=== PATIENT | male | born 1955 | race Caucasian/White ===

== ENCOUNTER 2020-09-30 09:05 | Inpatient (IN) | payer SELFPAY ==
[~2020-09-30] VITALS: Ht 172.7 cm; Wt 62.3 kg
[~2020-09-30 09:05] MED LIST: NKHM
[2020-09-30 09:07] VITALS: BP 120/70
[2020-09-30 09:36] VITALS: BP 122/64
[2020-09-30 09:42] LABS: BASO % 0.2 % (0.0-1.0); HEMATOCRIT 29.3 % (42.0-52.0); LYMPH # 1.6 10*3/uL (1.3-4.4); LYMPH % 16.8 % (27.0-41.0); MEAN CELL VOLUME 87.2 fl (80.0-94.0); MEAN CORPUSCULAR HGB 28.3 pg (27.0-31.0); MEAN CORPUSCULAR HGB CONC 32.4 g/dl (33.0-37.0); MEAN PLATELET VOLUME 10.8 fl (9.6-12.3); MONO # 0.4 10*3/uL (0.1-1.0); MONO % 4.5 % (3.0-9.0); NEUT # 7.2 10*3/uL (2.3-7.9); NEUT % 77.7 % (47.0-73.0); PLATELET COUNT AUTOMATED 50 10*3/uL (130-400); RED BLOOD COUNT 3.36 10*6/uL (4.50-5.90); WHITE BLOOD COUNT 9.3 10*3/uL (4.8-10.8)
[2020-09-30 09:54] LABS: INTERNATIONAL NORM RATIO 1.1 (2.0-3.5)
[2020-09-30 09:58] LABS: ALBUMIN 2.8 gm/dl (3.1-4.5); ALKALINE PHOSPHATASE 104 U/L (45-117); BUN 16 mg/dl (7-24); CHLORIDE 98 mmol/L (98-107); CREATININE 0.94 mg/dL (0.70-1.30); POTASSIUM 4.2 mmol/L (3.5-5.1); SGOT/AST 28 IU/L (3-35); SGPT/ALT 20 U/L (12-78); SODIUM 132 mmol/L (136-145); TOTAL PROTEIN 8.7 gm/dL (6.4-8.2)
[2020-09-30 10:01] LABS: ETHYL ALCOHOL < 3.0 mg/dl (<3); TROPONIN I 0.824 ng/ml (<0.045)
[2020-09-30 10:05] VITALS: BP 132/65
[2020-09-30 16:00] VITALS: BP 112/67
[2020-09-30 20:00] VITALS: BP 119/64
[2020-10-01] VITALS: BP 121/61
[2020-10-01 06:20] LABS: HEMATOCRIT 25.9 % (42.0-52.0); MEAN CELL VOLUME 88.7 fl (80.0-94.0); MEAN CORPUSCULAR HGB 28.1 pg (27.0-31.0); MEAN CORPUSCULAR HGB CONC 31.7 g/dl (33.0-37.0); MEAN PLATELET VOLUME 10.9 fl (9.6-12.3); PLATELET COUNT AUTOMATED 55 10*3/uL (130-400); RED BLOOD COUNT 2.92 10*6/uL (4.50-5.90); RED CELL DISTRI WIDTH 16.1 % (0-14.5); WHITE BLOOD COUNT 8.2 10*3/uL (4.8-10.8)
[2020-10-01 06:31] LABS: INTERNATIONAL NORM RATIO 1.1 (2.0-3.5)
[2020-10-01 06:48] LABS: ALBUMIN 2.2 gm/dl (3.1-4.5); ALKALINE PHOSPHATASE 77 U/L (45-117); BUN 10 mg/dl (7-24); CHLORIDE 99 mmol/L (98-107); CHOLESTEROL 93 mg/dL (<200); CREATININE 0.81 mg/dL (0.70-1.30); HDL CHOLESTEROL 19 mg/dl (40-60); LDH 229 U/L (87-241); LDL CHOLESTEROL 54 mg/dL (9-159); POTASSIUM 3.7 mmol/L (3.5-5.1); SGOT/AST 23 IU/L (3-35); SGPT/ALT 17 U/L (12-78); SODIUM 131 mmol/L (136-145); TOTAL PROTEIN 7.2 gm/dL (6.4-8.2); TRIGLYCERIDES 98 mg/dl (<150); VLDL CHOLESTEROL 20 mg/dL (6-40)
[2020-10-01 06:56] LABS: CPK 54 U/L (39-308)
[2020-10-01 07:06] LABS: ATYPICAL LYMPHS 1 % (0-0); OVALOCYTES FEW; PLATELET SUFFICIENCY LOW (NORMAL); POLYCHROMASIA SLIGHT; TOTAL CELLS COUNTED 100 #CELLS
[2020-10-01 07:33] LABS: FERRITIN 133.9 ng/mL (22.0-322.0); VITAMIN D, 25-HYDROXY 11.5 ng/mL (30-100)
[2020-10-01 08:15] VITALS: BP 129/68
[2020-10-01 12:00] VITALS: BP 115/66
[2020-10-01 16:00] VITALS: BP 126/62
[2020-10-01 20:00] VITALS: BP 121/66
[2020-10-02] VITALS: BP 124/67
[2020-10-02 04:00] VITALS: BP 126/75
[2020-10-02 04:25] LABS: BILIRUBIN Negative (Negative); BLOOD 3+ (Negative); CLARITY Clear (Clear); COLOR Yellow (Yellow); GLUCOSE Negative (Negative); KETONE Negative (Negative); LEUKO ESTERASE Trace (Negative); NITRITE Negative (Negative)
[2020-10-02 04:34] LABS: RBC 51-100 rbc/hpf (0-2)
[2020-10-02 04:35] LABS: BACTERIA 1+; EPITHELIAL CELLS 0-2
[2020-10-02 06:00] LABS: BASO % 0.4 % (0.0-1.0); EOS % 0.3 % (1.0-4.0); HEMATOCRIT 28.6 % (42.0-52.0); LYMPH # 2.8 10*3/uL (1.3-4.4); LYMPH % 39.3 % (27.0-41.0); MEAN CELL VOLUME 87.5 fl (80.0-94.0); MEAN CORPUSCULAR HGB 28.7 pg (27.0-31.0); MEAN CORPUSCULAR HGB CONC 32.9 g/dl (33.0-37.0); MEAN PLATELET VOLUME 11.5 fl (9.6-12.3); MONO # 0.4 10*3/uL (0.1-1.0); MONO % 6.2 % (3.0-9.0); NEUT # 3.8 10*3/uL (2.3-7.9); NEUT % 52.7 % (47.0-73.0); PLATELET COUNT AUTOMATED 68 10*3/uL (130-400); RED BLOOD COUNT 3.27 10*6/uL (4.50-5.90); RED CELL DISTRI WIDTH 15.8 % (0-14.5); WHITE BLOOD COUNT 7.2 10*3/uL (4.8-10.8)
[2020-10-02 06:44] LABS: ALBUMIN 2.4 gm/dl (3.1-4.5); ALKALINE PHOSPHATASE 81 U/L (45-117); BUN 8 mg/dl (7-24); CHLORIDE 98 mmol/L (98-107); CREATININE 0.74 mg/dL (0.70-1.30); POTASSIUM 3.9 mmol/L (3.5-5.1); SGOT/AST 32 IU/L (3-35); SGPT/ALT 22 U/L (12-78); SODIUM 129 mmol/L (136-145); TOTAL PROTEIN 7.7 gm/dL (6.4-8.2)
[2020-10-02 06:53] LABS: CPK 128 U/L (39-308)
[2020-10-02 08:00] VITALS: BP 140/66
[2020-10-02 12:00] VITALS: BP 141/74
[2020-10-02 16:00] VITALS: BP 116/69
[2020-10-02 16:53] LABS: ALBUMIN 2.3 gm/dl (3.1-4.5); BUN 8 mg/dl (7-24); CHLORIDE 97 mmol/L (98-107); CREATININE 0.72 mg/dL (0.70-1.30); SODIUM 132 mmol/L (136-145)
[2020-10-02 20:00] VITALS: BP 141/64
[2020-10-03] VITALS: BP 118/71
[2020-10-03 06:16] LABS: BASO % 0.3 % (0.0-1.0); HEMATOCRIT 26.9 % (42.0-52.0); LYMPH # 1.5 10*3/uL (1.3-4.4); LYMPH % 19.7 % (27.0-41.0); MEAN CELL VOLUME 86.8 fl (80.0-94.0); MEAN CORPUSCULAR HGB 27.7 pg (27.0-31.0); MEAN PLATELET VOLUME 10.5 fl (9.6-12.3); MONO # 0.2 10*3/uL (0.1-1.0); MONO % 2.3 % (3.0-9.0); NEUT # 5.8 10*3/uL (2.3-7.9); NEUT % 76.6 % (47.0-73.0); PLATELET COUNT AUTOMATED 68 10*3/uL (130-400); RED CELL DISTRI WIDTH 15.7 % (0-14.5); WHITE BLOOD COUNT 7.5 10*3/uL (4.8-10.8)
[2020-10-03 06:27] LABS: ALBUMIN 2.2 gm/dl (3.1-4.5); CHLORIDE 100 mmol/L (98-107); CREATININE 0.66 mg/dL (0.70-1.30); POTASSIUM 4.3 mmol/L (3.5-5.1); SGOT/AST 31 IU/L (3-35); SGPT/ALT 24 U/L (12-78); SODIUM 131 mmol/L (136-145); TOTAL PROTEIN 7.2 gm/dL (6.4-8.2)
[2020-10-03 06:33] LABS: ALKALINE PHOSPHATASE 75 U/L (45-117); BUN 11 mg/dl (7-24)
[2020-10-03 06:46] LABS: CPK 50 U/L (39-308)
[2020-10-03 08:00] VITALS: BP 123/71
[2020-10-03] MEDS ORDERED: ATORVASTATIN CA40 M1 PO (11:37)
[2020-10-03] MEDS ORDERED: LOPRESSOR25 MG PO (11:38)
[2020-10-03 12:00] VITALS: BP 117/64
== END 2020-10-03 13:35 | disposition home or self-care (01) | DRG 871 ==
LOC: ED 09:05 → 4E 10:36 → EDHOLD 10:36 → 4E 10:48
PROVIDERS: Emergency Medicine; Internal Medicine; Student in an Organized Health Care Education/Training Program; ADMIT Family Medicine; ATTEND Family Medicine
DX: A41.9 Sepsis, unspecified organism (principal); J15.9 Unspecified bacterial pneumonia; I21.A1 Myocardial infarction type 2; E44.0 Moderate protein-calorie malnutrition; E87.1 Hypo-osmolality and hyponatremia; Z20.828 Contact with and (suspected) exposure to other viral communicable diseases; R65.20 Severe sepsis without septic shock; R91.1 Solitary pulmonary nodule; D64.9 Anemia, unspecified; D69.6 Thrombocytopenia, unspecified; I45.10 Unspecified right bundle-branch block; R73.9 Hyperglycemia, unspecified; I71.2 Thoracic aortic aneurysm, without rupture; J43.9 Emphysema, unspecified; F17.210 Nicotine dependence, cigarettes, uncomplicated; Z68.20 Body mass index [BMI] 20.0-20.9, adult; Z71.6 Tobacco abuse counseling; Z80.1 Family history of malignant neoplasm of trachea, bronchus and lung; Z80.3 Family history of malignant neoplasm of breast

== ENCOUNTER → 2020-10-14 | Outpatient (CLI) | payer SELFPAY ==
[~2020-10-14] MED LIST changes: +ATORVASTATIN CA40 M1 PO; +LOPRESSOR25 MG PO
== END | disposition home or self-care (01) ==
LOC: RESCLI 09:39
PROVIDERS: ATTEND Internal Medicine Nephrology
DX: E87.1 Hypo-osmolality and hyponatremia (principal); E55.9 Vitamin D deficiency, unspecified; D50.9 Iron deficiency anemia, unspecified; R53.1 Weakness; D64.9 Anemia, unspecified; R91.8 Other nonspecific abnormal finding of lung field; I77.810 Thoracic aortic ectasia; Z86.73 Personal history of transient ischemic attack (TIA), and cerebral infarction without residual deficits; Z79.899 Other long term (current) drug therapy; Z98.890 Other specified postprocedural states; Z87.891 Personal history of nicotine dependence

== ENCOUNTER → 2020-11-17 | Outpatient (CLI) | payer OTHER | END | disposition home or self-care (01) | LOC: LAB 10:18 | PROVIDERS: ATTEND Student in an Organized Health Care Education/Training Program | DX: E78.5 Hyperlipidemia, unspecified (principal) ==

== ENCOUNTER 2022-12-22 10:21 | Emergency (ER) | payer OTHER, MEDICAID ==
[~2022-12-22] VITALS: Ht 243.8 cm; Wt 61.2 kg
[2022-12-22 11:12] LABS: BASO # 0.2 10*3/uL (0.0-0.1); BASO % 0.6 % (0.0-1.0); EOS % 0.1 % (1.0-4.0); HEMATOCRIT 44.7 % (42.0-52.0); LYMPH # 1.6 10*3/uL (1.3-4.4); LYMPH % 3.7 % (27.0-41.0); MEAN CELL VOLUME 89.9 fl (80.0-94.0); MEAN CORPUSCULAR HGB 28.8 pg (27.0-31.0); MEAN PLATELET VOLUME 11.8 fl (9.6-12.3); MONO # 1.1 10*3/uL (0.1-1.0); MONO % 2.7 % (3.0-9.0); NEUT # 37.6 10*3/uL (2.3-7.9); NEUT % 90.4 % (47.0-73.0); PLATELET COUNT AUTOMATED 235 10*3/uL (130-400); RED BLOOD COUNT 4.97 10*6/uL (4.50-5.90); RED CELL DISTRI WIDTH 16.1 % (0-14.5)
[2022-12-22 11:15] LABS: WHITE BLOOD COUNT 41.7 10*3/uL (4.8-10.8)
[2022-12-22 11:21] LABS: ACT PARTIAL THROMBO TIME 30.2 SECONDS (20.0-32.1); INTERNATIONAL NORM RATIO 1.1 (2.0-3.5)
[2022-12-22 11:26] LABS: ALKALINE PHOSPHATASE 142 U/L (46-116); BUN 20 mg/dl (9-23); CHLORIDE 101 mmol/L (98-107); LIPASE 28 U/L (12-53); POTASSIUM 4.4 mmol/L (3.4-5.1); SGPT/ALT 39 U/L (10-49); TOTAL PROTEIN 7.4 gm/dL (6.0-8.0)
[2022-12-22 11:34] LABS: OVALOCYTES MODERATE; PLATELET SUFFICIENCY NORMAL (NORMAL); TOTAL CELLS COUNTED 100 #CELLS
[2022-12-22 16:02] VITALS: BP 126/48
== END 2022-12-22 16:47 | disposition short-term general hospital (02) ==
LOC: ED 10:21
PROVIDERS: Emergency Medicine
DX: I44.2 Atrioventricular block, complete (principal); J96.01 Acute respiratory failure with hypoxia; I21.4 Non-ST elevation (NSTEMI) myocardial infarction; Z98.890 Other specified postprocedural states; F17.200 Nicotine dependence, unspecified, uncomplicated

== ENCOUNTER → 2023-04-05 | Outpatient (CLI) | payer OTHER, MEDICAID ==
[2023-04-05 10:44] LABS: HEMATOCRIT 53.7 % (42.0-52.0); MEAN CELL VOLUME 79.1 fl (80.0-94.0); MEAN CORPUSCULAR HGB 24.7 pg (27.0-31.0); MEAN CORPUSCULAR HGB CONC 31.3 g/dl (33.0-37.0); PLATELET COUNT AUTOMATED 166 10*3/uL (130-400); RED BLOOD COUNT 6.79 10*6/uL (4.50-5.90); RED CELL DISTRI WIDTH 19.9 % (0-14.5)
[2023-04-05 10:45] LABS: MANUAL DIFF REFLEX YES
[2023-04-05 10:50] LABS: WHITE BLOOD COUNT 44.9 10*3/uL (4.8-10.8)
[2023-04-05 11:12] LABS: BASOPHILS 2 % (0-1); BURR CELLS FEW; MICROCYTOSIS SLIGHT; OVALOCYTES FEW; PLATELET SUFFICIENCY NORMAL (NORMAL); POLYCHROMASIA SLIGHT; TOTAL CELLS COUNTED 100 #CELLS
[2023-04-05 11:19] LABS: ALKALINE PHOSPHATASE 165 U/L (46-116); BUN 15 mg/dl (9-23); CHLORIDE 101 mmol/L (98-107); POTASSIUM 4.5 mmol/L (3.4-5.1); SGPT/ALT 44 U/L (10-49); TOTAL PROTEIN 8.7 gm/dL (6.0-8.0)
== END | disposition home or self-care (01) ==
LOC: LAB 10:06
PROVIDERS: ATTEND Internal Medicine Hematology & Oncology
DX: D72.828 Other elevated white blood cell count (principal)

== ENCOUNTER → 2023-04-12 | Outpatient (CLI) | payer OTHER, MEDICAID ==
[2023-04-12 07:44] LABS: HEMATOCRIT 50.2 % (42.0-52.0); MEAN CORPUSCULAR HGB 25.2 pg (27.0-31.0); MEAN CORPUSCULAR HGB CONC 31.1 g/dl (33.0-37.0); MEAN PLATELET VOLUME 10.9 fl (9.6-12.3); PLATELET COUNT AUTOMATED 168 10*3/uL (130-400); RED CELL DISTRI WIDTH 20.8 % (0-14.5)
[2023-04-12 07:45] LABS: MANUAL DIFF REFLEX YES
[2023-04-12 08:12] LABS: ATYPICAL LYMPHS 1 % (0-0); BASOPHILS 2 % (0-1); TOTAL CELLS COUNTED 100 #CELLS
[2023-04-12 08:13] LABS: BURR CELLS MODERATE; OVALOCYTES FEW; PLATELET SUFFICIENCY NORMAL (NORMAL); POLYCHROMASIA SLIGHT; SCHISTOCYTES FEW; TOXIC GRANULATION SLIGHT; VACUOLATION OF NEUTROPHILS SLIGHT
[2023-04-12 08:38] LABS: ALKALINE PHOSPHATASE 153 U/L (46-116); BUN 16 mg/dl (9-23); CHLORIDE 107 mmol/L (98-107); POTASSIUM 4.3 mmol/L (3.4-5.1); SGPT/ALT 44 U/L (10-49); TOTAL PROTEIN 7.8 gm/dL (6.0-8.0)
[2023-04-12 10:19] LABS: WHITE BLOOD COUNT 42.5 10*3/uL (4.8-10.8)
== END | disposition home or self-care (01) ==
LOC: LAB 01:15
PROVIDERS: ATTEND Internal Medicine Hematology & Oncology
DX: D72.828 Other elevated white blood cell count (principal); D72.829 Elevated white blood cell count, unspecified

== ENCOUNTER → 2023-04-19 | Outpatient (CLI) | payer OTHER, MEDICAID ==
[2023-04-19 07:30] LABS: HEMATOCRIT 50.2 % (42.0-52.0); MEAN CELL VOLUME 81.1 fl (80.0-94.0); MEAN CORPUSCULAR HGB 25.8 pg (27.0-31.0); MEAN CORPUSCULAR HGB CONC 31.9 g/dl (33.0-37.0); PLATELET COUNT AUTOMATED 143 10*3/uL (130-400); RED BLOOD COUNT 6.19 10*6/uL (4.50-5.90); RED CELL DISTRI WIDTH 21.6 % (0-14.5)
[2023-04-19 07:58] LABS: ALKALINE PHOSPHATASE 151 U/L (46-116); BUN 14 mg/dl (9-23); CHLORIDE 104 mmol/L (98-107); POTASSIUM 4.1 mmol/L (3.4-5.1); SGPT/ALT 49 U/L (10-49); TOTAL PROTEIN 8.4 gm/dL (6.0-8.0)
[2023-04-19 08:00] LABS: MANUAL DIFF REFLEX YES
[2023-04-19 08:02] LABS: ATYPICAL LYMPHS 3 % (0-0); BASOPHILS 1 % (0-1); OVALOCYTES MODERATE; POLYCHROMASIA SLIGHT; SCHISTOCYTES FEW; TOTAL CELLS COUNTED 100 #CELLS
[2023-04-19 08:03] LABS: BURR CELLS MODERATE; PLATELET SUFFICIENCY NORMAL (NORMAL)
[2023-04-19 08:06] LABS: WHITE BLOOD COUNT 37.5 10*3/uL (4.8-10.8)
== END | disposition home or self-care (01) ==
LOC: LAB 01:05
PROVIDERS: ATTEND Internal Medicine Hematology & Oncology
DX: D72.828 Other elevated white blood cell count (principal)

== ENCOUNTER → 2023-04-26 | Outpatient (CLI) | payer OTHER, MEDICAID ==
[2023-04-26 09:18] LABS: MANUAL DIFF REFLEX YES; MEAN CELL VOLUME 81.7 fl (80.0-94.0); MEAN CORPUSCULAR HGB 26.3 pg (27.0-31.0); MEAN CORPUSCULAR HGB CONC 32.2 g/dl (33.0-37.0); PLATELET COUNT AUTOMATED 115 10*3/uL (130-400); RED BLOOD COUNT 6.12 10*6/uL (4.50-5.90); RED CELL DISTRI WIDTH 22.9 % (0-14.5)
[2023-04-26 09:53] LABS: BASOPHILS 3 % (0-1); TOTAL CELLS COUNTED 100 #CELLS
[2023-04-26 09:54] LABS: OVALOCYTES FEW; PLATELET SUFFICIENCY LOW (NORMAL); POLYCHROMASIA SLIGHT; ROULEAUX SLIGHT; SCHISTOCYTES FEW; TOXIC GRANULATION SLIGHT
[2023-04-26 09:56] LABS: WHITE BLOOD COUNT 38.4 10*3/uL (4.8-10.8)
[2023-04-26 10:10] LABS: ALKALINE PHOSPHATASE 139 U/L (46-116); BUN 11 mg/dl (9-23); CHLORIDE 105 mmol/L (98-107); SGPT/ALT 31 U/L (10-49); TOTAL PROTEIN 7.7 gm/dL (6.0-8.0)
== END | disposition home or self-care (01) ==
LOC: LAB 00:16
PROVIDERS: ATTEND Internal Medicine Hematology & Oncology
DX: D72.828 Other elevated white blood cell count (principal)

== ENCOUNTER → 2023-05-10 | Outpatient (CLI) | payer OTHER, MEDICAID ==
[2023-05-10 07:15] LABS: HEMATOCRIT 50.8 % (42.0-52.0); MEAN CELL VOLUME 85.5 fl (80.0-94.0); MEAN CORPUSCULAR HGB 27.6 pg (27.0-31.0); MEAN CORPUSCULAR HGB CONC 32.3 g/dl (33.0-37.0); PLATELET COUNT AUTOMATED 148 10*3/uL (130-400); RED BLOOD COUNT 5.94 10*6/uL (4.50-5.90); RED CELL DISTRI WIDTH 23.7 % (0-14.5); WHITE BLOOD COUNT 35.2 10*3/uL (4.8-10.8)
[2023-05-10 07:16] LABS: MANUAL DIFF REFLEX YES
[2023-05-10 07:38] LABS: ALKALINE PHOSPHATASE 136 U/L (46-116); BUN 15 mg/dl (9-23); CHLORIDE 103 mmol/L (98-107); POTASSIUM 4.1 mmol/L (3.4-5.1); SGPT/ALT 56 U/L (10-49); TOTAL PROTEIN 7.6 gm/dL (6.0-8.0)
[2023-05-10 07:56] LABS: BURR CELLS MODERATE; OVALOCYTES FEW; PLATELET SUFFICIENCY NORMAL (NORMAL); POLYCHROMASIA SLIGHT; SCHISTOCYTES FEW; TOTAL CELLS COUNTED 100 #CELLS; TOXIC GRANULATION SLIGHT; VACUOLATION OF NEUTROPHILS SLIGHT
[2023-05-10 07:57] LABS: ROULEAUX SLIGHT
== END | disposition home or self-care (01) ==
LOC: LAB 02:05
PROVIDERS: ATTEND Internal Medicine Hematology & Oncology
DX: D72.829 Elevated white blood cell count, unspecified (principal)

== ENCOUNTER → 2023-05-24 | Outpatient (CLI) | payer OTHER, MEDICAID ==
[2023-05-24 07:34] LABS: HEMATOCRIT 49.6 % (42.0-52.0); MEAN CELL VOLUME 86.9 fl (80.0-94.0); MEAN CORPUSCULAR HGB 28.4 pg (27.0-31.0); MEAN CORPUSCULAR HGB CONC 32.7 g/dl (33.0-37.0); MEAN PLATELET VOLUME 11.5 fl (9.6-12.3); PLATELET COUNT AUTOMATED 127 10*3/uL (130-400); RED BLOOD COUNT 5.71 10*6/uL (4.50-5.90); RED CELL DISTRI WIDTH 23.9 % (0-14.5); WHITE BLOOD COUNT 30.6 10*3/uL (4.8-10.8)
[2023-05-24 07:41] LABS: MANUAL DIFF REFLEX YES
[2023-05-24 07:54] LABS: ALKALINE PHOSPHATASE 130 U/L (46-116); BUN 15 mg/dl (9-23); CHLORIDE 104 mmol/L (98-107); POTASSIUM 3.9 mmol/L (3.4-5.1); SGPT/ALT 42 U/L (10-49); TOTAL PROTEIN 7.9 gm/dL (6.0-8.0)
[2023-05-24 08:03] LABS: TOTAL CELLS COUNTED 100 #CELLS
[2023-05-24 08:04] LABS: ACANTHOCYTES FEW; OVALOCYTES FEW; PLATELET SUFFICIENCY LOW (NORMAL); POLYCHROMASIA SLIGHT; ROULEAUX SLIGHT; SCHISTOCYTES FEW; TOXIC GRANULATION SLIGHT
== END | disposition home or self-care (01) ==
LOC: LAB 00:56
PROVIDERS: ATTEND Internal Medicine Hematology & Oncology
DX: D72.829 Elevated white blood cell count, unspecified (principal)

== ENCOUNTER → 2023-06-07 | Outpatient (CLI) | payer OTHER, MEDICAID ==
[2023-06-07 07:15] LABS: HEMATOCRIT 45.7 % (42.0-52.0); MEAN CELL VOLUME 89.3 fl (80.0-94.0); MEAN CORPUSCULAR HGB 29.5 pg (27.0-31.0); MEAN PLATELET VOLUME 12.1 fl (9.6-12.3); PLATELET COUNT AUTOMATED 107 10*3/uL (130-400); RED BLOOD COUNT 5.12 10*6/uL (4.50-5.90); RED CELL DISTRI WIDTH 23.1 % (0-14.5); WHITE BLOOD COUNT 27.5 10*3/uL (4.8-10.8)
[2023-06-07 08:26] LABS: ALKALINE PHOSPHATASE 117 U/L (46-116); BUN 15 mg/dl (9-23); CHLORIDE 103 mmol/L (98-107); POTASSIUM 4.3 mmol/L (3.4-5.1); SGPT/ALT 55 U/L (10-49); TOTAL PROTEIN 7.6 gm/dL (6.0-8.0)
[2023-06-07 08:37] LABS: BASOPHILS 1 % (0-1); BURR CELLS MODERATE; MANUAL DIFF REFLEX YES; OVALOCYTES MODERATE; PLATELET SUFFICIENCY LOW (NORMAL); TOTAL CELLS COUNTED 100 #CELLS
== END | disposition home or self-care (01) ==
LOC: LAB 01:36
PROVIDERS: ATTEND Internal Medicine Hematology & Oncology
DX: D72.828 Other elevated white blood cell count (principal)

== ENCOUNTER → 2023-07-05 | Outpatient (CLI) | payer OTHER, MEDICAID ==
[2023-07-05 07:47] LABS: HEMATOCRIT 46.3 % (42.0-52.0); MEAN CELL VOLUME 94.9 fl (80.0-94.0); MEAN CORPUSCULAR HGB CONC 33.7 g/dl (33.0-37.0); PLATELET COUNT AUTOMATED 78 10*3/uL (130-400); RED BLOOD COUNT 4.88 10*6/uL (4.50-5.90); RED CELL DISTRI WIDTH 20.1 % (0-14.5); WHITE BLOOD COUNT 32.5 10*3/uL (4.8-10.8)
[2023-07-05 08:13] LABS: ALKALINE PHOSPHATASE 128 U/L (46-116); BUN 14 mg/dl (9-23); CHLORIDE 102 mmol/L (98-107); POTASSIUM 4.2 mmol/L (3.4-5.1); SGPT/ALT 34 U/L (10-49); TOTAL PROTEIN 7.9 gm/dL (6.0-8.0)
[2023-07-05 08:15] LABS: ATYPICAL LYMPHS 2 % (0-0); BASOPHILS 1 % (0-1); PLATELET SUFFICIENCY LOW (NORMAL); TOTAL CELLS COUNTED 100 #CELLS
[2023-07-05 08:16] LABS: OVALOCYTES FEW
[2023-07-05 08:17] LABS: BURR CELLS FEW; POLYCHROMASIA SLIGHT
[2023-07-05 08:18] LABS: MANUAL DIFF REFLEX YES
== END | disposition home or self-care (01) ==
LOC: LAB 00:59
PROVIDERS: ATTEND Internal Medicine Hematology & Oncology
DX: D72.829 Elevated white blood cell count, unspecified (principal)

== ENCOUNTER → 2023-08-09 | Outpatient (CLI) | payer OTHER, MEDICAID ==
[2023-08-09 07:19] LABS: HEMATOCRIT 43.7 % (42.0-52.0); MEAN CELL VOLUME 99.3 fl (80.0-94.0); MEAN CORPUSCULAR HGB 33.9 pg (27.0-31.0); MEAN CORPUSCULAR HGB CONC 34.1 g/dl (33.0-37.0); MEAN PLATELET VOLUME 11.8 fl (9.6-12.3); PLATELET COUNT AUTOMATED 122 10*3/uL (130-400); RED CELL DISTRI WIDTH 15.8 % (0-14.5); WHITE BLOOD COUNT 33.1 10*3/uL (4.8-10.8)
[2023-08-09 07:21] LABS: MANUAL DIFF REFLEX YES
[2023-08-09 07:47] LABS: ALKALINE PHOSPHATASE 129 U/L (46-116); BUN 12 mg/dl (9-23); CHLORIDE 104 mmol/L (98-107); SGPT/ALT 34 U/L (10-49); TOTAL PROTEIN 7.5 gm/dL (6.0-8.0)
[2023-08-09 07:51] LABS: BASOPHILS 1 % (0-1); PLATELET SUFFICIENCY LOW (NORMAL); TOTAL CELLS COUNTED 100 #CELLS
== END | disposition home or self-care (01) ==
LOC: LAB 00:05
PROVIDERS: ATTEND Internal Medicine Hematology & Oncology
DX: D72.828 Other elevated white blood cell count (principal)

== ENCOUNTER → 2023-09-13 | Outpatient (CLI) | payer OTHER, MEDICAID ==
[2023-09-13 07:36] LABS: HEMATOCRIT 46.9 % (42.0-52.0); MEAN CELL VOLUME 99.6 fl (80.0-94.0); MEAN CORPUSCULAR HGB 33.5 pg (27.0-31.0); MEAN CORPUSCULAR HGB CONC 33.7 g/dl (33.0-37.0); MEAN PLATELET VOLUME 12.7 fl (9.6-12.3); PLATELET COUNT AUTOMATED 91 10*3/uL (130-400); RED BLOOD COUNT 4.71 10*6/uL (4.50-5.90); RED CELL DISTRI WIDTH 15.3 % (0-14.5)
[2023-09-13 07:40] LABS: MANUAL DIFF REFLEX YES
[2023-09-13 08:03] LABS: ALKALINE PHOSPHATASE 142 U/L (46-116); BUN 10 mg/dl (9-23); CHLORIDE 106 mmol/L (98-107); POTASSIUM 4.1 mmol/L (3.4-5.1); SGPT/ALT 54 U/L (10-49); TOTAL PROTEIN 7.8 gm/dL (6.0-8.0)
[2023-09-13 08:10] LABS: BASOPHILS 1 % (0-1); BURR CELLS MODERATE; PLATELET SUFFICIENCY LOW (NORMAL); POLYCHROMASIA SLIGHT; TOTAL CELLS COUNTED 100 #CELLS; TOXIC GRANULATION SLIGHT; VACUOLATION OF NEUTROPHILS SLIGHT
[2023-09-13 08:11] LABS: OVALOCYTES FEW; SCHISTOCYTES FEW
== END | disposition home or self-care (01) ==
LOC: LAB 07:12
PROVIDERS: ATTEND Internal Medicine Hematology & Oncology
DX: D72.828 Other elevated white blood cell count (principal)

== ENCOUNTER → 2023-10-05 | Outpatient (CLI) | payer OTHER, MEDICAID ==
[2023-10-05 07:28] LABS: HEMATOCRIT 46.5 % (42.0-52.0); MEAN CELL VOLUME 99.4 fl (80.0-94.0); MEAN CORPUSCULAR HGB 34.2 pg (27.0-31.0); MEAN CORPUSCULAR HGB CONC 34.4 g/dl (33.0-37.0); MEAN PLATELET VOLUME 11.8 fl (9.6-12.3); PLATELET COUNT AUTOMATED 139 10*3/uL (130-400); RED BLOOD COUNT 4.68 10*6/uL (4.50-5.90); RED CELL DISTRI WIDTH 15.2 % (0-14.5)
[2023-10-05 07:30] LABS: MANUAL DIFF REFLEX YES
[2023-10-05 07:59] LABS: TOTAL CELLS COUNTED 100 #CELLS
[2023-10-05 08:01] LABS: POLYCHROMASIA SLIGHT
[2023-10-05 08:02] LABS: BURR CELLS FEW; OVALOCYTES FEW; PLATELET SUFFICIENCY NORMAL (NORMAL)
[2023-10-05 08:03] LABS: ALKALINE PHOSPHATASE 132 U/L (46-116); BUN 12 mg/dl (9-23); CHLORIDE 105 mmol/L (98-107); POTASSIUM 4.1 mmol/L (3.4-5.1); SGPT/ALT 42 U/L (5-49); TOTAL PROTEIN 8.2 gm/dL (6.0-8.0)
[2023-10-05 10:39] LABS: WHITE BLOOD COUNT 39.4 10*3/uL (4.8-10.8)
== END | disposition home or self-care (01) ==
LOC: LAB 01:21
PROVIDERS: ATTEND Internal Medicine Hematology & Oncology
DX: D72.829 Elevated white blood cell count, unspecified (principal)

== ENCOUNTER → 2023-11-09 | Outpatient (CLI) | payer OTHER, MEDICAID ==
[2023-11-09 07:29] LABS: HEMATOCRIT 50.2 % (42.0-52.0); MEAN CELL VOLUME 97.5 fl (80.0-94.0); MEAN CORPUSCULAR HGB 31.8 pg (27.0-31.0); MEAN CORPUSCULAR HGB CONC 32.7 g/dl (33.0-37.0); MEAN PLATELET VOLUME 12.7 fl (9.6-12.3); PLATELET COUNT AUTOMATED 109 10*3/uL (130-400); RED BLOOD COUNT 5.15 10*6/uL (4.50-5.90); RED CELL DISTRI WIDTH 14.8 % (0-14.5)
[2023-11-09 07:33] LABS: MANUAL DIFF REFLEX YES
[2023-11-09 07:53] LABS: ATYPICAL LYMPHS 1 % (0-0); PLATELET SUFFICIENCY LOW (NORMAL); TOTAL CELLS COUNTED 100 #CELLS
[2023-11-09 08:03] LABS: ALKALINE PHOSPHATASE 165 U/L (46-116); BUN 12 mg/dl (9-23); CHLORIDE 104 mmol/L (98-107); POTASSIUM 3.8 mmol/L (3.4-5.1); SGPT/ALT 37 U/L (5-49); TOTAL PROTEIN 8.1 gm/dL (6.0-8.0)
[2023-11-09 08:12] LABS: WHITE BLOOD COUNT 55.4 10*3/uL (4.8-10.8)
== END | disposition home or self-care (01) ==
LOC: LAB 02:11
PROVIDERS: ATTEND Internal Medicine Hematology & Oncology
DX: D72.828 Other elevated white blood cell count (principal)

== ENCOUNTER → 2023-11-23 | Outpatient (CLI) | payer OTHER, MEDICAID ==
[2023-11-23 07:16] LABS: HEMATOCRIT 46.3 % (42.0-52.0); MEAN CELL VOLUME 98.5 fl (80.0-94.0); MEAN CORPUSCULAR HGB 32.3 pg (27.0-31.0); MEAN CORPUSCULAR HGB CONC 32.8 g/dl (33.0-37.0); MEAN PLATELET VOLUME 12.2 fl (9.6-12.3); PLATELET COUNT AUTOMATED 132 10*3/uL (130-400); RED CELL DISTRI WIDTH 15.6 % (0-14.5)
[2023-11-23 07:19] LABS: MANUAL DIFF REFLEX YES
[2023-11-23 07:44] LABS: ALKALINE PHOSPHATASE 162 U/L (46-116); BUN 12 mg/dl (9-23); CHLORIDE 106 mmol/L (98-107); SGPT/ALT 54 U/L (5-49); TOTAL PROTEIN 7.6 gm/dL (6.0-8.0)
[2023-11-23 08:17] LABS: TOTAL CELLS COUNTED 100 #CELLS
[2023-11-23 08:18] LABS: PLATELET SUFFICIENCY NORMAL (NORMAL)
[2023-11-23 09:11] LABS: WHITE BLOOD COUNT 46.3 10*3/uL (4.8-10.8)
== END | disposition home or self-care (01) ==
LOC: LAB 00:23
PROVIDERS: ATTEND Nurse Practitioner Family
DX: D72.828 Other elevated white blood cell count (principal)

== ENCOUNTER → 2023-12-07 | Outpatient (CLI) | payer OTHER, MEDICAID ==
[2023-12-07 07:17] LABS: HEMATOCRIT 44.7 % (42.0-52.0); MEAN CELL VOLUME 100.9 fl (80.0-94.0); MEAN CORPUSCULAR HGB 32.7 pg (27.0-31.0); MEAN CORPUSCULAR HGB CONC 32.4 g/dl (33.0-37.0); MEAN PLATELET VOLUME 12.4 fl (9.6-12.3); PLATELET COUNT AUTOMATED 141 10*3/uL (130-400); RED BLOOD COUNT 4.43 10*6/uL (4.50-5.90); RED CELL DISTRI WIDTH 17.8 % (0-14.5)
[2023-12-07 07:18] LABS: MANUAL DIFF REFLEX YES
[2023-12-07 07:44] LABS: ALKALINE PHOSPHATASE 146 U/L (46-116); BUN 15 mg/dl (9-23); CHLORIDE 107 mmol/L (98-107); POTASSIUM 4.6 mmol/L (3.4-5.1); SGPT/ALT 37 U/L (5-49); TOTAL PROTEIN 7.8 gm/dL (6.0-8.0)
[2023-12-07 07:54] LABS: BASOPHILS 1 % (0-1); PLATELET SUFFICIENCY NORMAL (NORMAL); TOTAL CELLS COUNTED 100 #CELLS
[2023-12-07 07:55] LABS: POLYCHROMASIA SLIGHT
[2023-12-07 09:04] LABS: WHITE BLOOD COUNT 38.6 10*3/uL (4.8-10.8)
== END | disposition home or self-care (01) ==
LOC: LAB 00:30
PROVIDERS: ATTEND Nurse Practitioner Family
DX: D72.828 Other elevated white blood cell count (principal)

== ENCOUNTER → 2024-01-04 | Outpatient (CLI) | payer OTHER, MEDICAID ==
[2024-01-04 07:35] LABS: HEMATOCRIT 39.7 % (42.0-52.0); MEAN CELL VOLUME 104.7 fl (80.0-94.0); MEAN CORPUSCULAR HGB 34.8 pg (27.0-31.0); MEAN CORPUSCULAR HGB CONC 33.2 g/dl (33.0-37.0); MEAN PLATELET VOLUME 12.2 fl (9.6-12.3); PLATELET COUNT AUTOMATED 101 10*3/uL (130-400); RED BLOOD COUNT 3.79 10*6/uL (4.50-5.90); RED CELL DISTRI WIDTH 19.9 % (0-14.5); WHITE BLOOD COUNT 28.8 10*3/uL (4.8-10.8)
[2024-01-04 07:36] LABS: MANUAL DIFF REFLEX YES
[2024-01-04 08:24] LABS: ALKALINE PHOSPHATASE 131 U/L (46-116); BUN 15 mg/dl (9-23); CHLORIDE 105 mmol/L (98-107); POTASSIUM 4.6 mmol/L (3.4-5.1); SGPT/ALT 66 U/L (5-49); TOTAL PROTEIN 7.7 gm/dL (6.0-8.0)
[2024-01-04 09:46] LABS: ATYPICAL LYMPHS 2 % (0-0); PLATELET SUFFICIENCY LOW (NORMAL); TOTAL CELLS COUNTED 100 #CELLS
== END | disposition home or self-care (01) ==
LOC: LAB 01:07
PROVIDERS: ATTEND Internal Medicine Hematology & Oncology
DX: D72.828 Other elevated white blood cell count (principal)

== ENCOUNTER → 2024-01-25 | Outpatient (CLI) | payer OTHER ==
[2024-01-25 07:36] LABS: HEMATOCRIT 41.8 % (42.0-52.0); MEAN CELL VOLUME 108.6 fl (80.0-94.0); MEAN CORPUSCULAR HGB 36.4 pg (27.0-31.0); MEAN CORPUSCULAR HGB CONC 33.5 g/dl (33.0-37.0); MEAN PLATELET VOLUME 12.5 fl (9.6-12.3); PLATELET COUNT AUTOMATED 89 10*3/uL (130-400); RED BLOOD COUNT 3.85 10*6/uL (4.50-5.90); RED CELL DISTRI WIDTH 18.7 % (0-14.5); WHITE BLOOD COUNT 27.8 10*3/uL (4.8-10.8)
[2024-01-25 08:04] LABS: MANUAL DIFF REFLEX YES
[2024-01-25 08:06] LABS: POLYCHROMASIA SLIGHT; TOTAL CELLS COUNTED 100 #CELLS
[2024-01-25 08:07] LABS: BURR CELLS FEW; OVALOCYTES FEW; PLATELET SUFFICIENCY LOW (NORMAL)
[2024-01-25 08:14] LABS: ALKALINE PHOSPHATASE 143 U/L (46-116); BUN 11 mg/dl (9-23); CHLORIDE 104 mmol/L (98-107); SGPT/ALT 36 U/L (5-49)
== END | disposition home or self-care (01) ==
LOC: LAB 01:20
PROVIDERS: ATTEND Internal Medicine Hematology & Oncology
DX: D72.828 Other elevated white blood cell count (principal)

== ENCOUNTER → 2024-02-08 | Outpatient (CLI) | payer OTHER ==
[2024-02-08 07:41] LABS: HEMATOCRIT 41.9 % (42.0-52.0); MEAN CELL VOLUME 107.7 fl (80.0-94.0); MEAN CORPUSCULAR HGB 36.8 pg (27.0-31.0); MEAN CORPUSCULAR HGB CONC 34.1 g/dl (33.0-37.0); MEAN PLATELET VOLUME 13.1 fl (9.6-12.3); PLATELET COUNT AUTOMATED 77 10*3/uL (130-400); RED BLOOD COUNT 3.89 10*6/uL (4.50-5.90); RED CELL DISTRI WIDTH 15.9 % (0-14.5); WHITE BLOOD COUNT 34.9 10*3/uL (4.8-10.8)
[2024-02-08 08:01] LABS: ALKALINE PHOSPHATASE 136 U/L (46-116); BUN 10 mg/dl (9-23); CHLORIDE 104 mmol/L (98-107); POTASSIUM 3.9 mmol/L (3.4-5.1); SGPT/ALT 49 U/L (5-49); TOTAL PROTEIN 7.5 gm/dL (6.0-8.0)
[2024-02-08 08:07] LABS: MANUAL DIFF REFLEX YES
[2024-02-08 08:10] LABS: OVALOCYTES MODERATE; PLATELET SUFFICIENCY LOW (NORMAL); TOTAL CELLS COUNTED 100 #CELLS
== END | disposition home or self-care (01) ==
LOC: LAB 01:24
PROVIDERS: Internal Medicine Hematology & Oncology; ATTEND Emergency Medicine
DX: D72.828 Other elevated white blood cell count (principal)

== ENCOUNTER → 2024-02-22 | Outpatient (CLI) | payer OTHER ==
[2024-02-22 07:29] LABS: HEMATOCRIT 42.1 % (42.0-52.0); MEAN CELL VOLUME 110.8 fl (80.0-94.0); MEAN CORPUSCULAR HGB 36.8 pg (27.0-31.0); MEAN CORPUSCULAR HGB CONC 33.3 g/dl (33.0-37.0); PLATELET COUNT AUTOMATED 116 10*3/uL (130-400); RED CELL DISTRI WIDTH 14.6 % (0-14.5); WHITE BLOOD COUNT 36.4 10*3/uL (4.8-10.8)
[2024-02-22 07:39] LABS: MANUAL DIFF REFLEX YES
[2024-02-22 07:54] LABS: BASOPHILS 1 % (0-1); PLATELET SUFFICIENCY LOW (NORMAL); TOTAL CELLS COUNTED 100 #CELLS
[2024-02-22 07:55] LABS: ALKALINE PHOSPHATASE 140 U/L (46-116); BUN 12 mg/dl (9-23); CHLORIDE 107 mmol/L (98-107); POTASSIUM 4.1 mmol/L (3.4-5.1); SGPT/ALT 37 U/L (5-49); TOTAL PROTEIN 7.5 gm/dL (6.0-8.0)
== END | disposition home or self-care (01) ==
LOC: LAB 01:27
PROVIDERS: ATTEND Internal Medicine Hematology & Oncology
DX: D72.828 Other elevated white blood cell count (principal)

== ENCOUNTER → 2024-03-10 | Outpatient (CLI) | payer OTHER ==
[2024-03-10 07:17] LABS: HEMATOCRIT 41.9 % (42.0-52.0); MEAN CELL VOLUME 109.7 fl (80.0-94.0); MEAN CORPUSCULAR HGB 36.1 pg (27.0-31.0); MEAN CORPUSCULAR HGB CONC 32.9 g/dl (33.0-37.0); MEAN PLATELET VOLUME 12.3 fl (9.6-12.3); PLATELET COUNT AUTOMATED 151 10*3/uL (130-400); RED BLOOD COUNT 3.82 10*6/uL (4.50-5.90); RED CELL DISTRI WIDTH 13.4 % (0-14.5)
[2024-03-10 07:28] LABS: MANUAL DIFF REFLEX YES
[2024-03-10 07:38] LABS: ALKALINE PHOSPHATASE 138 U/L (46-116); BUN 13 mg/dl (9-23); CHLORIDE 105 mmol/L (98-107); SGPT/ALT 37 U/L (5-49); TOTAL PROTEIN 7.5 gm/dL (6.0-8.0)
[2024-03-10 08:52] LABS: BASOPHILS 1 % (0-1); BURR CELLS FEW; OVALOCYTES FEW; PLATELET SUFFICIENCY NORMAL (NORMAL); POLYCHROMASIA SLIGHT; TOTAL CELLS COUNTED 100 #CELLS
[2024-03-10 08:55] LABS: WHITE BLOOD COUNT 37.1 10*3/uL (4.8-10.8)
== END | disposition home or self-care (01) ==
LOC: LAB 02:39
PROVIDERS: ATTEND Internal Medicine Hematology & Oncology
DX: D72.828 Other elevated white blood cell count (principal)

== ENCOUNTER 2024-03-24 09:47 | Inpatient (IN) | payer OTHER ==
[~2024-03-24] VITALS: Ht 175.2 cm; Wt 64.0 kg
[2024-03-24 09:53] VITALS: BP 113/50
[2024-03-24 10:09] LABS: HEMATOCRIT 43.8 % (42.0-52.0); MANUAL DIFF REFLEX YES; MEAN CELL VOLUME 107.9 fl (80.0-94.0); MEAN CORPUSCULAR HGB 35.7 pg (27.0-31.0); MEAN CORPUSCULAR HGB CONC 33.1 g/dl (33.0-37.0); MEAN PLATELET VOLUME 12.1 fl (9.6-12.3); PLATELET COUNT AUTOMATED 193 10*3/uL (130-400); RED BLOOD COUNT 4.06 10*6/uL (4.50-5.90); RED CELL DISTRI WIDTH 13.4 % (0-14.5); WHITE BLOOD COUNT 39.6 10*3/uL (4.8-10.8)
[2024-03-24 10:17] LABS: ACT PARTIAL THROMBO TIME 32.8 SECONDS (20.0-32.1)
[2024-03-24 10:29] LABS: ALKALINE PHOSPHATASE 151 U/L (46-116); BUN 18 mg/dl (9-23); CHLORIDE 105 mmol/L (98-107); LIPASE 42 U/L (12-53); POTASSIUM 4.5 mmol/L (3.4-5.1); SGPT/ALT 24 U/L (5-49); TOTAL PROTEIN 7.8 gm/dL (6.0-8.0)
[2024-03-24 10:32] LABS: BASOPHILS 1 % (0-1); BURR CELLS FEW; OVALOCYTES FEW; PLATELET SUFFICIENCY NORMAL (NORMAL); POLYCHROMASIA SLIGHT; SCHISTOCYTES FEW; TOTAL CELLS COUNTED 100 #CELLS; TOXIC GRANULATION SLIGHT
[2024-03-24] MEDS ORDERED: ASPIRIN 325 MG TAB PO ONE (10:40)
[2024-03-24] MEDS ORDERED: FUROSEMIDE 40 MG/4 ML VIAL IV ONE (10:40)
[2024-03-24] MEDS ORDERED: AZITHROMYCIN 250 ML IV ONE (11:40)
[2024-03-24] MEDS ORDERED: Ceftriaxone Sodium 1 GM/10 ML SYR IV ONE (11:40)
[2024-03-24] MEDS ORDERED: BISACODYL 5 MG TAB PO PRN (13:55)
[2024-03-24] MEDS ORDERED: ACETAMINOPHEN 325 MG TAB PO PRN (13:55)
[2024-03-24] MEDS ORDERED: BISACODYL 10 MG SUPP R PRN (13:55)
[2024-03-24] MEDS ORDERED: Magnesium Hydroxide 30 ML UDC PO PRN (13:55)
[2024-03-24] MEDS ORDERED: ASPIRIN ADULT L81 M2 PO (14:00)
[2024-03-24] MEDS ORDERED: SPIRIVA -- 3018 MCG INH (14:00)
[2024-03-24] MEDS ORDERED: PROCHLORPERAZIN10 MG PO (14:01)
[2024-03-24] MEDS ORDERED: ATORVASTATIN CA40 M1 PO (14:01)
[2024-03-24] MEDS ORDERED: ALBUTEROL HFA 90 MCG INH (14:02)
[2024-03-24] MEDS ORDERED: LOSARTAN POTASS25 M1 PO (14:03)
[2024-03-24] MEDS ORDERED: METOPROLOL SUCC50 M1 PO (14:04)
[2024-03-24] MEDS ORDERED: HYDROXYUREA500 MG PO (14:04)
[2024-03-24 14:30] VITALS: BP 132/65
[2024-03-24 14:32] VITALS: BP 111/64
[2024-03-24] MEDS ORDERED: Albuterol Sulf/Ipratropium 3 ML VIAL NEB SCH (15:00)
[2024-03-24] MEDS ORDERED: methylPREDNISolone sod succ 125 MG VIAL IV ONE (15:05)
[2024-03-24] MEDS ORDERED: CALCIUM (TUMS) 500MG PO PRN (15:25)
[2024-03-24 16:00] VITALS: BP 108/56
[2024-03-24 20:00] VITALS: BP 105/69
[2024-03-24] MEDS ORDERED: ATORVASTATIN CALCIUM 40 MG TABLET PO SCH (22:00)
[2024-03-24] MEDS ORDERED: GUAIFENESIN 600 MG TAB ER PO SCH (22:00)
[2024-03-24] MEDS ORDERED: Doxycycline Hyclate 100 MG in SODIUM CHLORIDE 0.9% 250 ML IV SCH (22:00)
[2024-03-25 05:41] VITALS: BP 118/51
[2024-03-25 06:07] LABS: HEMATOCRIT 41.1 % (42.0-52.0); MEAN CELL VOLUME 107.9 fl (80.0-94.0); MEAN CORPUSCULAR HGB 34.9 pg (27.0-31.0); MEAN CORPUSCULAR HGB CONC 32.4 g/dl (33.0-37.0); MEAN PLATELET VOLUME 12.3 fl (9.6-12.3); PLATELET COUNT AUTOMATED 140 10*3/uL (130-400); RED BLOOD COUNT 3.81 10*6/uL (4.50-5.90)
[2024-03-25 06:12] LABS: MANUAL DIFF REFLEX YES; WHITE BLOOD COUNT 40.7 10*3/uL (4.8-10.8)
[2024-03-25 06:42] LABS: PLATELET SUFFICIENCY NORMAL (NORMAL); SCHISTOCYTES FEW; TOTAL CELLS COUNTED 100 #CELLS
[2024-03-25 07:10] LABS: BUN 26 mg/dl (9-23); CHLORIDE 104 mmol/L (98-107); CHOLESTEROL 81 mg/dL (<200); FREE T4 1.18 ng/dl (0.89-1.76); LDL CHOLESTEROL 45 mg/dL (9-159); POTASSIUM 4.2 mmol/L (3.4-5.1); TRIGLYCERIDES 40 mg/dl (<150)
[2024-03-25 08:00] VITALS: BP 116/52
[2024-03-25] MEDS ORDERED: HYDROXYUREA 500 MG CAP PO SCH (10:00)
[2024-03-25] MEDS ORDERED: FUROSEMIDE 40 MG/4 ML VIAL IV SCH (10:00)
[2024-03-25] MEDS ORDERED: Enoxaparin Sodium 40 MG/0.4 ML SYR SC SCH (10:00)
[2024-03-25] MEDS ORDERED: Vitamin D 1,000 IU TAB (25 MCG) PO SCH (10:00)
[2024-03-25] MEDS ORDERED: METOPROLOL SUCCINATE XR 50 MG TAB PO SCH (10:00)
[2024-03-25] MEDS ORDERED: methylPREDNISolone sod succ 40 MG VIAL IV SCH (10:00)
[2024-03-25] MEDS ORDERED: ASPIRIN ENTERIC COATED 81 MG TAB PO SCH (10:00)
[2024-03-25 12:00] VITALS: BP 119/52
[2024-03-25] MEDS ORDERED: Ceftriaxone Sodium 1 GM in SYRINGE INFUSION 10 ML IV SCH (12:00)
[2024-03-25 16:00] VITALS: BP 118/55
[2024-03-25 20:00] VITALS: BP 121/48
[2024-03-26] VITALS: BP 121/50
[2024-03-26 06:34] LABS: BUN 26 mg/dl (9-23); CHLORIDE 100 mmol/L (98-107); POTASSIUM 4.2 mmol/L (3.4-5.1)
[2024-03-26 06:42] LABS: HEMATOCRIT 40.5 % (42.0-52.0); MANUAL DIFF REFLEX YES; MEAN CELL VOLUME 107.4 fl (80.0-94.0); MEAN CORPUSCULAR HGB 35.3 pg (27.0-31.0); MEAN CORPUSCULAR HGB CONC 32.8 g/dl (33.0-37.0); MEAN PLATELET VOLUME 12.4 fl (9.6-12.3); PLATELET COUNT AUTOMATED 193 10*3/uL (130-400); RED BLOOD COUNT 3.77 10*6/uL (4.50-5.90); RED CELL DISTRI WIDTH 13.1 % (0-14.5)
[2024-03-26 06:44] LABS: WHITE BLOOD COUNT 54.5 10*3/uL (4.8-10.8)
[2024-03-26 07:15] LABS: PLATELET SUFFICIENCY NORMAL (NORMAL); POLYCHROMASIA SLIGHT; TOTAL CELLS COUNTED 100 #CELLS; TOXIC GRANULATION SLIGHT; VACUOLATION OF NEUTROPHILS SLIGHT
[2024-03-26 07:16] LABS: BURR CELLS FEW; OVALOCYTES FEW
[2024-03-26 08:00] VITALS: BP 117/49
[2024-03-26 12:00] VITALS: BP 130/47
[2024-03-26] MEDS ORDERED: EMPAGLIFLOZIN 10 MG TABLET PO SCH (13:15)
[2024-03-26 16:00] VITALS: BP 110/52
[2024-03-26 20:00] VITALS: BP 115/57
[2024-03-26] MEDS ORDERED: SACUBITRIL/VALSARTAN 24 MG-26 MG TABLET PO SCH (22:00)
[2024-03-27] VITALS: BP 127/50
[2024-03-27 06:24] LABS: HEMATOCRIT 43.3 % (42.0-52.0); MEAN CELL VOLUME 109.6 fl (80.0-94.0); MEAN CORPUSCULAR HGB 34.9 pg (27.0-31.0); MEAN CORPUSCULAR HGB CONC 31.9 g/dl (33.0-37.0); MEAN PLATELET VOLUME 12.6 fl (9.6-12.3); PLATELET COUNT AUTOMATED 195 10*3/uL (130-400); RED BLOOD COUNT 3.95 10*6/uL (4.50-5.90); RED CELL DISTRI WIDTH 13.1 % (0-14.5)
[2024-03-27 06:26] LABS: MANUAL DIFF REFLEX YES
[2024-03-27 06:27] LABS: WHITE BLOOD COUNT 57.9 10*3/uL (4.8-10.8)
[2024-03-27 07:01] LABS: BURR CELLS FEW; OVALOCYTES FEW; PLATELET SUFFICIENCY NORMAL (NORMAL); POLYCHROMASIA SLIGHT; TOTAL CELLS COUNTED 100 #CELLS; TOXIC GRANULATION SLIGHT
[2024-03-27 07:25] LABS: BUN 17 mg/dl (9-23); CHLORIDE 101 mmol/L (98-107); POTASSIUM 4.4 mmol/L (3.4-5.1)
[2024-03-27 08:00] VITALS: BP 120/40
[2024-03-27] MEDS ORDERED: METOPROLOL SUCCINATE XR 50 MG TAB PO SCH (10:00)
[2024-03-27] MEDS ORDERED: FUROSEMIDE 20 MG TAB PO SCH (10:00)
[2024-03-27] MEDS ORDERED: SPIRONOLACTONE 25 MG TAB PO SCH (10:00)
[2024-03-27 12:00] VITALS: BP 130/50
[2024-03-27 16:00] VITALS: BP 130/60
[2024-03-27 20:00] VITALS: BP 109/61
[2024-03-28 07:40] LABS: BUN 19 mg/dl (9-23); CHLORIDE 103 mmol/L (98-107); POTASSIUM 4.3 mmol/L (3.4-5.1)
[2024-03-28 08:00] VITALS: BP 120/80
[2024-03-28] MEDS ORDERED: methylPREDNISolone sod succ 40 MG VIAL IV SCH (10:00)
[2024-03-28 12:00] VITALS: BP 122/78
[2024-03-28] MEDS ORDERED: PREDNISONE10 MG PO (13:44)
[2024-03-28] MEDS ORDERED: ENTRESTO 24 MG1 EACH PO (13:44)
[2024-03-28] MEDS ORDERED: VIBRA-TAB100 MG PO (13:44)
[2024-03-28] MEDS ORDERED: MUCUS RELIEF600 MG PO (13:44)
[2024-03-28] MEDS ORDERED: JARDIANCE10 MG PO (13:44)
[2024-03-28] MEDS ORDERED: ALDACTONE25 MG PO (13:44)
[2024-03-28] MEDS ORDERED: METOPROLOL SUCC50 M1 PO (13:44)
[2024-03-28] MEDS ORDERED: FUROSEMIDE20 M1 PO (13:44)
[2024-03-28 16:00] VITALS: BP 116/54
== END 2024-03-28 17:57 | disposition home or self-care (01) | DRG 871 ==
LOC: ED 09:47 → 4E 13:22 → EDHOLD 13:22 → 5E 14:13 → 4E 18:07
PROVIDERS: Family Medicine; Internal Medicine; Student in an Organized Health Care Education/Training Program; ADMIT Internal Medicine; ATTEND Internal Medicine
PROC: 4B02XSZ Measurement of Cardiac Pacemaker, External Approach (ICD-10-PCS; principal; 2024-03-24)
DX: A41.9 Sepsis, unspecified organism (principal); I21.4 Non-ST elevation (NSTEMI) myocardial infarction; J96.01 Acute respiratory failure with hypoxia; J15.9 Unspecified bacterial pneumonia; I50.43 Acute on chronic combined systolic (congestive) and diastolic (congestive) heart failure; I47.29 Other ventricular tachycardia; I44.2 Atrioventricular block, complete; D75.81 Myelofibrosis; E87.1 Hypo-osmolality and hyponatremia; D64.9 Anemia, unspecified; F12.90 Cannabis use, unspecified, uncomplicated; I08.3 Combined rheumatic disorders of mitral, aortic and tricuspid valves; K21.9 Gastro-esophageal reflux disease without esophagitis; I27.20 Pulmonary hypertension, unspecified; J43.9 Emphysema, unspecified; E55.9 Vitamin D deficiency, unspecified; I25.2 Old myocardial infarction; Z80.1 Family history of malignant neoplasm of trachea, bronchus and lung; Z79.82 Long term (current) use of aspirin; Z79.899 Other long term (current) drug therapy; Z95.2 Presence of prosthetic heart valve; Z71.6 Tobacco abuse counseling; Z71.51 Drug abuse counseling and surveillance of drug abuser

== ENCOUNTER → 2024-04-25 | Outpatient (CLI) | payer OTHER ==
[~2024-04-25] MED LIST changes: +ALBUTEROL HFA 90 MCG INH; +ALDACTONE25 MG PO; +ASPIRIN ADULT L81 M2 PO; +ENTRESTO 24 MG1 EACH PO; +FUROSEMIDE20 M1 PO; +HYDROXYUREA500 MG PO; +JARDIANCE10 MG PO; +LOSARTAN POTASS25 M1 PO; +METOPROLOL SUCC50 M1 PO; +MUCUS RELIEF600 MG PO; +PREDNISONE10 MG PO; +PROCHLORPERAZIN10 MG PO; +SPIRIVA -- 3018 MCG INH; +VIBRA-TAB100 MG PO
[2024-04-25 07:25] LABS: HEMATOCRIT 48.4 % (42.0-52.0); MEAN CELL VOLUME 108.8 fl (80.0-94.0); MEAN CORPUSCULAR HGB 34.4 pg (27.0-31.0); MEAN CORPUSCULAR HGB CONC 31.6 g/dl (33.0-37.0); MEAN PLATELET VOLUME 12.4 fl (9.6-12.3); PLATELET COUNT AUTOMATED 96 10*3/uL (130-400); RED BLOOD COUNT 4.45 10*6/uL (4.50-5.90); RED CELL DISTRI WIDTH 14.8 % (0-14.5)
[2024-04-25 07:31] LABS: MANUAL DIFF REFLEX YES
[2024-04-25 08:10] LABS: ATYPICAL LYMPHS 1 % (0-0); BASOPHILS 1 % (0-1); PLATELET SUFFICIENCY LOW (NORMAL); TOTAL CELLS COUNTED 100 #CELLS
[2024-04-25 08:14] LABS: ALKALINE PHOSPHATASE 137 U/L (46-116); BUN 24 mg/dl (9-23); CHLORIDE 104 mmol/L (98-107); POTASSIUM 4.1 mmol/L (3.4-5.1); SGPT/ALT 56 U/L (5-49); TOTAL PROTEIN 6.8 gm/dL (6.0-8.0)
[2024-04-25 08:15] LABS: WHITE BLOOD COUNT 39.5 10*3/uL (4.8-10.8)
== END | disposition home or self-care (01) ==
LOC: LAB 00:04
PROVIDERS: ATTEND Internal Medicine Hematology & Oncology
DX: D47.1 Chronic myeloproliferative disease (principal)

== ENCOUNTER 2024-09-18 17:55 | Inpatient (IN) | payer OTHER ==
[~2024-09-18] VITALS: Ht 175.3 cm; Wt 59.4 kg
[~2024-09-18 17:55] MED LIST changes: -ALBUTEROL HFA 90 MCG INH; +ALPRAZOLAM0.25 M2 PO; +ASPIRIN ADULT L81 M1 PO; -ASPIRIN ADULT L81 M2 PO; +FUROSEMIDE40 MG PO; +Ipratropium Brom3 ML INH; +METOPROLOL SUCC25 M2 PO; +PREDNISONE20 M1 PO; +PROAIR RESPICL90 MCG INH; +TRELEGY ELLIPT1 EACH INH; +ZITHROMAX500 MG PO
[2024-09-18 18:03] VITALS: BP 107/36
[2024-09-18 18:45] LABS: HEMATOCRIT 40.7 % (42.0-52.0); MANUAL DIFF REFLEX YES; MEAN CORPUSCULAR HGB 32.2 pg (27.0-31.0); MEAN CORPUSCULAR HGB CONC 32.2 g/dl (33.0-37.0); MEAN PLATELET VOLUME 12.5 fl (9.6-12.3); PLATELET COUNT AUTOMATED 282 10*3/uL (130-400); RED BLOOD COUNT 4.07 10*6/uL (4.50-5.90); RED CELL DISTRI WIDTH 14.6 % (0-14.5); WHITE BLOOD COUNT 35.1 10*3/uL (4.8-10.8)
[2024-09-18 19:10] LABS: OVALOCYTES MODERATE; POTASSIUM 5.5 mmol/L (3.4-5.1); SCHISTOCYTES FEW; TOTAL CELLS COUNTED 100 #CELLS; TOTAL PROTEIN 7.6 gm/dL (6.0-8.0)
[2024-09-18 19:11] LABS: ACANTHOCYTES FEW; PLATELET SUFFICIENCY NORMAL (NORMAL); SPHEROCYTES FEW
[2024-09-18] MEDS ORDERED: SODIUM CHLORIDE 0.9% 1,000 ML IV ONE (19:35)
[2024-09-18 19:58] LABS: ABG O2 SATURATION 87.1 % (94.0-98.0); ARTERIAL BLOOD GAS PH 7.391 (7.350-7.450)
[2024-09-18 20:00] LABS: ABG BASE EXCESS -5.4 mmol/L (-2.0-3.0); ARTERIAL BLOOD GAS PO2 54.2 mmHg (83.0-108.0)
[2024-09-18] MEDS ORDERED: Ceftriaxone Sodium 1 GM/10 ML SYR IV ONE (20:15)
[2024-09-18] MEDS ORDERED: ALPRAZolam 0.25 MG TAB PO ONE (20:15)
[2024-09-18] MEDS ORDERED: AZITHROMYCIN 250 ML IV ONE (20:15)
[2024-09-18] MEDS ORDERED: METOPROLOL SUCC50 M1 PO (21:38)
[2024-09-18] MEDS ORDERED: MIRTAZAPINE7.5 MG PO (21:42)
[2024-09-18] MEDS ORDERED: LOSARTAN POTASS25 M1 PO (21:42)
[2024-09-18] MEDS ORDERED: Magnesium Hydroxide 30 ML UDC PO PRN (22:25)
[2024-09-18] MEDS ORDERED: ACETAMINOPHEN 325 MG TAB PO PRN (22:25)
[2024-09-18] MEDS ORDERED: CALCIUM GLUCONATE 1 GM/10 ML VIAL IV ONE (22:40)
[2024-09-18] MEDS ORDERED: Albuterol Sulf/Ipratropium 3 ML VIAL NEB SCH (22:45)
[2024-09-18] MEDS ORDERED: SODIUM POLYSTYRENE SULFONATE 15 GM/60 ML BOT PO PRN (22:45)
[2024-09-18] MEDS ORDERED: methylPREDNISolone sod succ 40 MG VIAL IV SCH (22:47)
[2024-09-18] MEDS ORDERED: methylPREDNISolone sod succ 125 MG VIAL IV ONE (22:50)
[2024-09-18 23:00] VITALS: BP 103/43
[2024-09-19] MEDS ORDERED: Piperacillin Sodium/Tazobact 50 ML IV SCH
[2024-09-19] MEDS ORDERED: ALPRAZolam 0.25 MG TAB PO PRN (00:50)
[2024-09-19 01:00] VITALS: BP 101/42
[2024-09-19] MEDS ORDERED: BUDESONIDE 0.5 MG AMP NEB SCH (01:15)
[2024-09-19 04:00] VITALS: BP 100/49
[2024-09-19 05:57] LABS: ALKALINE PHOSPHATASE 140 U/L (46-116); BUN 34 mg/dl (9-23); CHLORIDE 106 mmol/L (98-107); SGPT/ALT 322 U/L (5-49); TOTAL PROTEIN 6.6 gm/dL (6.0-8.0)
[2024-09-19 06:01] LABS: POTASSIUM 4.5 mmol/L (3.4-5.1)
[2024-09-19 06:36] LABS: HEMATOCRIT 38.6 % (42.0-52.0); MEAN CORPUSCULAR HGB 32.6 pg (27.0-31.0); MEAN CORPUSCULAR HGB CONC 32.9 g/dl (33.0-37.0); MEAN PLATELET VOLUME 12.6 fl (9.6-12.3); RED CELL DISTRI WIDTH 14.3 % (0-14.5); WHITE BLOOD COUNT 32.9 10*3/uL (4.8-10.8)
[2024-09-19 06:37] LABS: MANUAL DIFF REFLEX YES; PLATELET COUNT AUTOMATED 181 10*3/uL (130-400)
[2024-09-19 06:57] LABS: BURR CELLS FEW; OVALOCYTES FEW; PLATELET SUFFICIENCY NORMAL (NORMAL); POLYCHROMASIA SLIGHT; SCHISTOCYTES FEW; TOTAL CELLS COUNTED 100 #CELLS; VACUOLATION OF NEUTROPHILS SLIGHT
[2024-09-19 08:00] VITALS: BP 107/42; BP 126/89
[2024-09-19 08:10] LABS: ABG O2 SATURATION 85.4 % (94.0-98.0); ARTERIAL BLOOD GAS PH 7.373 (7.350-7.450)
[2024-09-19 08:14] LABS: ABG BASE EXCESS -6.9 mmol/L (-2.0-3.0)
[2024-09-19 08:15] LABS: ARTERIAL BLOOD GAS PO2 47.1 mmHg (83.0-108.0)
[2024-09-19] MEDS ORDERED: ASPIRIN, CHEWABLE 81 MG TAB PO SCH (10:00)
[2024-09-19] MEDS ORDERED: methylPREDNISolone sod succ 40 MG VIAL IV SCH (10:00)
[2024-09-19] MEDS ORDERED: GUAIFENESIN 600 MG TAB ER PO SCH (10:00)
[2024-09-19] MEDS ORDERED: HEPARIN SODIUM 5,000 UNIT/ML VIAL SC SCH ×2 (10:00→22:00)
[2024-09-19] MEDS ORDERED: SACUBITRIL/VALSARTAN 24 MG-26 MG TABLET PO SCH (10:00)
[2024-09-19] MEDS ORDERED: TRELEGY ELLIPTA 100 MCG INH SCH (10:00)
[2024-09-19] MEDS ORDERED: EMPAGLIFLOZIN 10 MG TABLET PO SCH (10:00)
[2024-09-19 13:05] VITALS: BP 104/38
[2024-09-19] MEDS ORDERED: IOHEXOL 350 MG/ML 100 ML VIAL IV ONE (15:15)
[2024-09-19] MEDS ORDERED: SODIUM CHLORIDE 0.9% 100 ML BAG IV ONE (15:15)
[2024-09-19 16:00] VITALS: BP 99/44
[2024-09-19 20:00] VITALS: BP 115/78
[2024-09-19] MEDS ORDERED: AZITHROMYCIN 250 ML IV SCH (20:00)
[2024-09-19] MEDS ORDERED: ATORVASTATIN CALCIUM 40 MG TABLET PO SCH (22:00)
[2024-09-19] MEDS ORDERED: Mirtazapine 15 MG TAB PO SCH (22:00)
[2024-09-20] VITALS: BP 94/38
[2024-09-20 05:34] LABS: ALKALINE PHOSPHATASE 132 U/L (46-116); CHLORIDE 108 mmol/L (98-107); POTASSIUM 4.2 mmol/L (3.4-5.1); SGPT/ALT 283 U/L (5-49); TOTAL PROTEIN 6.5 gm/dL (6.0-8.0)
[2024-09-20 05:54] LABS: BUN 45 mg/dl (9-23)
[2024-09-20 06:06] LABS: HEMATOCRIT 39.5 % (42.0-52.0); MEAN CELL VOLUME 98.3 fl (80.0-94.0); MEAN CORPUSCULAR HGB 31.8 pg (27.0-31.0); MEAN CORPUSCULAR HGB CONC 32.4 g/dl (33.0-37.0); MEAN PLATELET VOLUME 12.8 fl (9.6-12.3); PLATELET COUNT AUTOMATED 218 10*3/uL (130-400); RED BLOOD COUNT 4.02 10*6/uL (4.50-5.90); RED CELL DISTRI WIDTH 14.4 % (0-14.5)
[2024-09-20 06:18] LABS: MANUAL DIFF REFLEX YES; WHITE BLOOD COUNT 43.5 10*3/uL (4.8-10.8)
[2024-09-20 06:57] LABS: PLATELET SUFFICIENCY NORMAL (NORMAL); TOTAL CELLS COUNTED 100 #CELLS
[2024-09-20 08:00] VITALS: BP 102/48
[2024-09-20] MEDS ORDERED: methylPREDNISolone sod succ 40 MG VIAL IV SCH (10:00)
[2024-09-20 12:00] VITALS: BP 98/42
[2024-09-21] MEDS ORDERED: METOPROLOL SUCCINATE XR 25 MG TAB PO SCH (10:00)
== END 2024-09-20 16:00 | disposition left against medical advice (07) | DRG 871 ==
LOC: ED 17:55 → EDHOLD 21:48 → ICCU 21:48 → 4E 22:41 → ICCU 23:35
PROVIDERS: Internal Medicine; Nurse Practitioner Family; Student in an Organized Health Care Education/Training Program; ADMIT Internal Medicine; ATTEND Internal Medicine
DX: A41.9 Sepsis, unspecified organism (principal); I21.4 Non-ST elevation (NSTEMI) myocardial infarction; N17.0 Acute kidney failure with tubular necrosis; J15.5 Pneumonia due to Escherichia coli; J96.21 Acute and chronic respiratory failure with hypoxia; I50.23 Acute on chronic systolic (congestive) heart failure; I44.2 Atrioventricular block, complete; D47.1 Chronic myeloproliferative disease; C34.81 Malignant neoplasm of overlapping sites of right bronchus and lung; J44.0 Chronic obstructive pulmonary disease with (acute) lower respiratory infection; I13.0 Hypertensive heart and chronic kidney disease with heart failure and stage 1 through stage 4 chronic kidney disease, or unspecified chronic kidney disease; R65.20 Severe sepsis without septic shock; E87.5 Hyperkalemia; R74.01 Elevation of levels of liver transaminase levels; D72.825 Bandemia; R91.8 Other nonspecific abnormal finding of lung field; I71.21 Aneurysm of the ascending aorta, without rupture; J43.2 Centrilobular emphysema; J43.1 Panlobular emphysema; K21.9 Gastro-esophageal reflux disease without esophagitis; Z15.89 Genetic susceptibility to other disease; F41.1 Generalized anxiety disorder; F41.9 Anxiety disorder, unspecified; Z20.822 Contact with and (suspected) exposure to COVID-19; D53.9 Nutritional anemia, unspecified; K57.90 Diverticulosis of intestine, part unspecified, without perforation or abscess without bleeding; E11.65 Type 2 diabetes mellitus with hyperglycemia; E11.22 Type 2 diabetes mellitus with diabetic chronic kidney disease; N18.9 Chronic kidney disease, unspecified; E55.9 Vitamin D deficiency, unspecified; Z86.73 Personal history of transient ischemic attack (TIA), and cerebral infarction without residual deficits; Z95.0 Presence of cardiac pacemaker; Z80.1 Family history of malignant neoplasm of trachea, bronchus and lung; Z80.3 Family history of malignant neoplasm of breast; Z79.899 Other long term (current) drug therapy; Z87.891 Personal history of nicotine dependence

== ENCOUNTER 2024-09-23 18:09 | Inpatient (IN) | payer OTHER ==
[~2024-09-23] VITALS: Ht 175.3 cm; Wt 59.9 kg
[~2024-09-23 18:09] MED LIST changes: +MIRTAZAPINE7.5 MG PO
[2024-09-23 18:18] VITALS: BP 111/27
[2024-09-23] MEDS ORDERED: MORPHINE Sulfate 100 MG in SODIUM CHLORIDE 0.9% 90 ML IV SCH (18:20)
[2024-09-23] MEDS ORDERED: MORPHINE Sulfate 2 MG/ML SYR IV PRN (18:25)
[2024-09-23] MEDS ORDERED: LORAZEPAM 2 MG IV PRN (18:25)
[2024-09-23] MEDS ORDERED: ATROPINE SULFATE 1% 2 ML BOTTLE SL PRN (18:25)
[2024-09-23] MEDS ORDERED: LORazepam 2 MG/ML VIAL IV PRN (18:30)
[2024-09-23] MEDS ORDERED: Water, Sterile 10 ML VIAL ONE (18:52)
[2024-09-23 20:00] VITALS: BP 71/23
[2024-09-23 20:15] VITALS: BP 61/20
== END 2024-09-23 23:34 | DRG 871 ==
LOC: ICCU 18:09
PROVIDERS: ADMIT Internal Medicine; ATTEND Internal Medicine
PROC: 5A09357 Assistance with Respiratory Ventilation, Less than 24 Consecutive Hours, Continuous Positive Airway Pressure (ICD-10-PCS; principal; 2024-09-23)
PROC: 02HV33Z Insertion of Infusion Device into Superior Vena Cava, Percutaneous Approach (ICD-10-PCS; 2024-09-23)
DX: A41.9 Sepsis, unspecified organism (principal); G93.41 Metabolic encephalopathy; I21.4 Non-ST elevation (NSTEMI) myocardial infarction; J96.01 Acute respiratory failure with hypoxia; N17.0 Acute kidney failure with tubular necrosis; I44.2 Atrioventricular block, complete; J44.1 Chronic obstructive pulmonary disease with (acute) exacerbation; D75.81 Myelofibrosis; I50.22 Chronic systolic (congestive) heart failure; Z66 Do not resuscitate; R65.20 Severe sepsis without septic shock; E87.5 Hyperkalemia; R74.01 Elevation of levels of liver transaminase levels; D53.9 Nutritional anemia, unspecified; R73.9 Hyperglycemia, unspecified; R91.8 Other nonspecific abnormal finding of lung field; I71.21 Aneurysm of the ascending aorta, without rupture; J43.1 Panlobular emphysema; K21.9 Gastro-esophageal reflux disease without esophagitis; I48.91 Unspecified atrial fibrillation; Z51.5 Encounter for palliative care; Z15.89 Genetic susceptibility to other disease; Z95.0 Presence of cardiac pacemaker; Z85.118 Personal history of other malignant neoplasm of bronchus and lung